=== PATIENT | female | born 1960 | race Hispanic/Latino ===

== ENCOUNTER 2021-09-13 19:19 | Inpatient (IN) | payer BC, MEDICARE ==
[~2021-09-13] VITALS: Ht 152.4 cm; Wt 72.8 kg
[2021-09-13] MEDS ORDERED: 0.9%NACL 1000ML 1,000 ML IV SCH (21:00)
[2021-09-13] MEDS ORDERED: ASPIRIN 81MG CHEW TAB PO ONE (21:00)
[2021-09-13] MEDS ORDERED: DOPAMINE 800MG/D5 250ML 250 ML IV PRN (21:30)
[2021-09-13] MEDS ORDERED: CARV25TA PO (21:31)
[2021-09-13] MEDS ORDERED: ONDA4TAB10 PO (21:31)
[2021-09-13] MEDS ORDERED: BUME2TAB5 PO (21:31)
[2021-09-13] MEDS ORDERED: ATOR20TA65 PO (21:31)
[2021-09-13] MEDS ORDERED: LACT10SO32 PO (21:31)
[2021-09-13] MEDS ORDERED: CALC667C10 PO (21:31)
[2021-09-13] MEDS ORDERED: MONT-39 PO (21:31)
[2021-09-13] MEDS ORDERED: HYDR-4030 PO (21:31)
[2021-09-13] MEDS ORDERED: VALS160T29 PO (21:31)
[2021-09-13] MEDS ORDERED: PANT20TA18 PO (21:31)
[2021-09-13] MEDS ORDERED: NIFE-39 PO (21:31)
[2021-09-13] MEDS ORDERED: SEVE800T7 PO (21:31)
[2021-09-13] MEDS ORDERED: SILV50CR31 TP (21:31)
[2021-09-13] MEDS ORDERED: RIVA2.5T PO (21:31)
[2021-09-13] MEDS ORDERED: ALPR0.5T8 PO (21:31)
[2021-09-13] MEDS ORDERED: HYDR50CA50 PO (21:31)
[2021-09-13] MEDS ORDERED: INSU100I21 SQ (21:31)
[2021-09-13 21:33] LABS: BASOPHILS % (AUTO) 0.7 % (0.0-5.0); EOSINOPHILS % (AUTO) 1.1 % (0.0-8.0); HEMATOCRIT 24.5 % (36-48); LYMPHOCYTES % (AUTO) 15.8 % (21.0-51.0); MEAN CORPUSCULAR HEMOGLOBIN 25.7 pg (27.0-33.0); MEAN CORPUSCULAR HGB CONC 31.8 g/dL (32.0-36.0); MEAN CORPUSCULAR VOLUME 80.9 fL (79-99); MONOCYTES % (AUTO) 6.6 % (3.0-13.0); NEUTROPHILS % (AUTO) 74.4 % (40.0-77.0); PLATELET COUNT (AUTO) 235 K/uL (130-400); RED BLOOD CELL COUNT(AUTO) 3.03 MIL/uL (4.00-5.50); RED CELL DISTRIBUTION WIDTH 15.3 % (11.0-15.5); WHITE BLOOD COUNT (AUTO) 9.9 K/uL (4.8-10.8)
[2021-09-13 21:43] LABS: INR 1.19 (0.85-1.15); PROTHROMBIN TIME 12.8 SEC (9.6-11.6)
[2021-09-13 21:45] LABS: PARTIAL THROMBOPLASTIN TIME 28.1 SEC (26.3-35.5)
[2021-09-13 21:53] LABS: % IRON SATURATION 15.1 % (22-44)
[2021-09-13 22:02] LABS: ALBUMIN 3.1 g/dL (3.5-5.0); BILIRUBIN,TOTAL 0.4 mg/dL (0.2-1.0); CREATININE 5.9 mg/dL (0.5-1.5); THYROID STIMULATING HORMONE 4.58 uIU/mL (0.36-3.74); TOTAL PROTEIN, SERUM 7.9 g/dL (6.0-8.3)
[2021-09-13] MEDS ORDERED: ONDANSETRON 4MG INJ ONE (23:07)
[2021-09-14] VITALS (44 sets, daily range): BP systolic 124–216; BP diastolic 24–97
[2021-09-14 03:52] LABS: BASOPHILS % (AUTO) 0.5 % (0.0-5.0); EOSINOPHILS % (AUTO) 1.4 % (0.0-8.0); LYMPHOCYTES % (AUTO) 14.1 % (21.0-51.0); MEAN CORPUSCULAR HEMOGLOBIN 25.9 pg (27.0-33.0); MEAN CORPUSCULAR HGB CONC 31.4 g/dL (32.0-36.0); MEAN CORPUSCULAR VOLUME 82.4 fL (79-99); MONOCYTES % (AUTO) 8.5 % (3.0-13.0); PLATELET COUNT (AUTO) 208 K/uL (130-400); RED BLOOD CELL COUNT(AUTO) 2.55 MIL/uL (4.00-5.50); WHITE BLOOD COUNT (AUTO) 10.5 K/uL (4.8-10.8)
[2021-09-14 04:29] LABS: CREATININE 6.2 mg/dL (0.5-1.5); MAGNESIUM 2.1 mg/dL (1.80-2.40); POTASSIUM 4.5 mmol/L (3.5-5.1)
[2021-09-14 04:32] LABS: HEMOGLOBIN A1C 8.2 % (4.0-6.0)
[2021-09-14] MEDS ORDERED: ASPIRIN 81MG CHEW TAB ONE (04:49)
[2021-09-14] MEDS ORDERED: 0.9%NACL 1000ML 1,000 ML IV ONE (04:53)
[2021-09-14] MEDS ORDERED: DOPAMINE 800MG/D5 250ML 250 ML IV ONE (05:11)
[2021-09-14] MEDS: ASPIRIN 81MG CHEW TAB PO SCH (08:22)
[2021-09-14] MEDS: PANTOPRAZOLE 40 MG/VIAL IVP SCH ×2 (09:00→19:59)
[2021-09-14] MEDS ORDERED: LACTULOSE 20 GM/30 ML UDCUP PO PRN (09:00)
[2021-09-14] MEDS ORDERED: PANTOPRAZOLE 40 MG/VIAL IVP SCH (09:00)
[2021-09-14] MEDS ORDERED: HYDROXYZINE 25 MG TABLET PO PRN (09:00)
[2021-09-14] MEDS ORDERED: DOXYCYCLINE 100MG+NS 250ML IV SCH (10:00)
[2021-09-14] MEDS: SEVELAMER HCL 800 MG TABLET PO SCH ×3 (10:06→17:00)
[2021-09-14] MEDS: MONTELUKAST SODIUM 10 MG TAB PO SCH (10:07)
[2021-09-14] MEDS: DOXYCYCLINE 100MG+NS 250ML 250 ML IV SCH ×2 (11:17→19:59)
[2021-09-14] MEDS: CEFEPIME HCL 1 GM VIAL IVP SCH (11:17)
[2021-09-14] MEDS ORDERED: AMIODARONE 150MG VIAL 150 MG in DEXTROSE 5%-WATER 100 ML IV ONE (11:30)
[2021-09-14] MEDS: INSULIN HUMULIN R 100 UNIT/ML 3ML SQ SCH ×3 (11:30→20:15)
[2021-09-14] MEDS: CALCIUM AC 667MG CAP PO SCH ×2 (12:00→17:00)
[2021-09-14 13:00] LABS: HEMATOCRIT 21.3 % (36-48); MEAN CORPUSCULAR HEMOGLOBIN 25.5 pg (27.0-33.0); MEAN CORPUSCULAR VOLUME 82.2 fL (79-99); PLATELET COUNT (AUTO) 193 K/uL (130-400); RED BLOOD CELL COUNT(AUTO) 2.59 MIL/uL (4.00-5.50); RED CELL DISTRIBUTION WIDTH 15.9 % (11.0-15.5); WHITE BLOOD COUNT (AUTO) 8.3 K/uL (4.8-10.8)
[2021-09-14] MEDS ORDERED: REGADENOSON 0.4 MG/5 ML PF SYG IVP SCH (13:30)
[2021-09-14] MEDS ORDERED: HEPARIN 5,000 UNIT VIAL IJ PRN (18:30)
[2021-09-14] MEDS: ATORVASTATIN 20 MG TABLET PO SCH (19:59)
[2021-09-14 20:55] LABS: HEPATITIS B SURFACE ANTIGEN Non-Reactive (Negative)
[2021-09-14] MEDS ORDERED: CLONIDINE HCL 0.1 MG TABLET ONE (23:17)
[2021-09-14] MEDS ORDERED: CLONIDINE HCL 0.1 MG TABLET PO ONE (23:30)
[2021-09-15] VITALS (12 sets, daily range): BP systolic 123–209; BP diastolic 46–94
[2021-09-15] MEDS ORDERED: NIFEDIPINE 10 MG CAP ONE (02:41)
[2021-09-15] MEDS ORDERED: NIFEDIPINE 10 MG CAP PO ONE (02:42)
[2021-09-15 04:21] LABS: HEMATOCRIT 25.5 % (36-48); MEAN CORPUSCULAR HEMOGLOBIN 25.2 pg (27.0-33.0); MEAN CORPUSCULAR HGB CONC 31.4 g/dL (32.0-36.0); MEAN CORPUSCULAR VOLUME 80.4 fL (79-99); RED BLOOD CELL COUNT(AUTO) 3.17 MIL/uL (4.00-5.50); RED CELL DISTRIBUTION WIDTH 16.4 % (11.0-15.5); WHITE BLOOD COUNT (AUTO) 6.9 K/uL (4.8-10.8)
[2021-09-15 04:27] LABS: CREATININE 3.9 mg/dL (0.5-1.5); POTASSIUM 3.4 mmol/L (3.5-5.1)
[2021-09-15] MEDS: INSULIN HUMULIN R 100 UNIT/ML 3ML SQ SCH ×4 (07:30→20:22)
[2021-09-15] MEDS: DOXYCYCLINE 100MG+NS 250ML 250 ML IV SCH ×2 (08:46→20:12)
[2021-09-15] MEDS: PANTOPRAZOLE 40 MG/VIAL IVP SCH ×2 (08:46→20:12)
[2021-09-15] MEDS: MONTELUKAST SODIUM 10 MG TAB PO SCH (08:51)
[2021-09-15] MEDS: CALCIUM AC 667MG CAP PO SCH ×3 (08:51→18:39)
[2021-09-15] MEDS: SEVELAMER HCL 800 MG TABLET PO SCH ×3 (08:51→18:38)
[2021-09-15] MEDS: ASPIRIN 81MG CHEW TAB PO SCH (08:52)
[2021-09-15] MEDS: CEFEPIME HCL 1 GM VIAL IVP SCH (14:21)
[2021-09-15] MEDS ORDERED: NIFEDIPINE ER 30 MG TAB PO ONE (14:24)
[2021-09-15] MEDS ORDERED: NIFEDIPINE ER 30 MG TAB PO SCH (15:30)
[2021-09-15] MEDS ORDERED: POTASSIUM CHLORIDE 10MEQ/100ML 10 MEQ/100 ML ML IV SCH (20:00)
[2021-09-15] MEDS: ATORVASTATIN 20 MG TABLET PO SCH (20:12)
[2021-09-15] MEDS: NIFEDIPINE ER 30 MG TAB PO SCH (20:12)
[2021-09-16] VITALS (23 sets, daily range): BP systolic 138–216; BP diastolic 69–113
[2021-09-16] MEDS: INSULIN HUMULIN R 100 UNIT/ML 3ML SQ SCH ×4 (06:52→21:00)
[2021-09-16] MEDS: MONTELUKAST SODIUM 10 MG TAB PO SCH (08:14)
[2021-09-16] MEDS: CALCIUM AC 667MG CAP PO SCH ×3 (08:14→17:00)
[2021-09-16] MEDS: SEVELAMER HCL 800 MG TABLET PO SCH ×3 (08:14→17:00)
[2021-09-16] MEDS: PANTOPRAZOLE 40 MG/VIAL IVP SCH ×2 (08:14→22:18)
[2021-09-16] MEDS: ASPIRIN 81MG CHEW TAB PO SCH (08:14)
[2021-09-16] MEDS: NIFEDIPINE ER 30 MG TAB PO SCH ×2 (09:00→22:18)
[2021-09-16] MEDS: DOXYCYCLINE 100MG+NS 250ML 250 ML IV SCH ×2 (09:00→22:18)
[2021-09-16 09:46] LABS: HEMATOCRIT 26.9 % (36-48); MEAN CORPUSCULAR HEMOGLOBIN 25.9 pg (27.0-33.0); MEAN CORPUSCULAR HGB CONC 31.6 g/dL (32.0-36.0); RED BLOOD CELL COUNT(AUTO) 3.28 MIL/uL (4.00-5.50); WHITE BLOOD COUNT (AUTO) 6.9 K/uL (4.8-10.8)
[2021-09-16 09:57] LABS: CREATININE 5.7 mg/dL (0.5-1.5); POTASSIUM 4.2 mmol/L (3.5-5.1)
[2021-09-16] MEDS: CEFEPIME HCL 1 GM VIAL IVP SCH (10:00)
[2021-09-16] MEDS ORDERED: ONDANSETRON 4MG INJ ONE (22:13)
[2021-09-16] MEDS: ATORVASTATIN 20 MG TABLET PO SCH (22:18)
[2021-09-16] MEDS ORDERED: ONDANSETRON 4MG INJ IVP PRN (22:30)
[2021-09-17] VITALS (16 sets, daily range): BP systolic 145–168; BP diastolic 58–85
[2021-09-17 04:16] LABS: HEMATOCRIT 27.5 % (36-48); MEAN CORPUSCULAR HEMOGLOBIN 25.1 pg (27.0-33.0); MEAN CORPUSCULAR HGB CONC 30.9 g/dL (32.0-36.0); MEAN CORPUSCULAR VOLUME 81.1 fL (79-99); RED BLOOD CELL COUNT(AUTO) 3.39 MIL/uL (4.00-5.50); RED CELL DISTRIBUTION WIDTH 15.5 % (11.0-15.5)
[2021-09-17 04:26] LABS: CREATININE 4.8 mg/dL (0.5-1.5)
[2021-09-17] MEDS: INSULIN HUMULIN R 100 UNIT/ML 3ML SQ SCH ×3 (06:29→16:30)
[2021-09-17] MEDS: SEVELAMER HCL 800 MG TABLET PO SCH ×3 (08:00→16:57)
[2021-09-17] MEDS: CALCIUM AC 667MG CAP PO SCH ×3 (08:00→16:57)
[2021-09-17] MEDS: DOXYCYCLINE 100MG+NS 250ML 250 ML IV SCH (08:27)
[2021-09-17] MEDS: NIFEDIPINE ER 30 MG TAB PO SCH (09:00)
[2021-09-17] MEDS: ASPIRIN 81MG CHEW TAB PO SCH (09:00)
[2021-09-17] MEDS: MONTELUKAST SODIUM 10 MG TAB PO SCH (09:00)
[2021-09-17] MEDS ORDERED: HYDRALAZINE 20MG/ML VIAL IV PRN (09:30)
[2021-09-17] MEDS ORDERED: [UNRECOGNIZED DRUG - REMARK] MISC SCH (09:30)
[2021-09-17] MEDS: PANTOPRAZOLE 40 MG/VIAL IVP SCH (10:46)
[2021-09-17] MEDS: CEFEPIME HCL 1 GM VIAL IVP SCH (10:46)
[2021-09-17] MEDS ORDERED: PROPOFOL 10 MG/ML 20ML VIAL IV ONE ×2 (13:58)
[2021-09-17] MEDS ORDERED: PANTOPRAZOLE 40 MG TAB DR PO SCH (21:00)
== END 2021-09-17 18:45 | disposition home or self-care (01) | DRG 291 ==
LOC: 2BH 19:19 → 4CH 09-15 03:31
PROVIDERS: ADMIT Internal Medicine; ATTEND Internal Medicine
PROC: 30233N1 Transfusion of Nonautologous Red Blood Cells into Peripheral Vein, Percutaneous Approach (ICD-10-PCS; 2021-09-14)
PROC: 5A1D70Z Performance of Urinary Filtration, Intermittent, Less than 6 Hours Per Day (ICD-10-PCS; 2021-09-14)
PROC: 5A1D70Z Performance of Urinary Filtration, Intermittent, Less than 6 Hours Per Day (ICD-10-PCS; 2021-09-16)
PROC: 0DB68ZX Excision of Stomach, Via Natural or Artificial Opening Endoscopic, Diagnostic (ICD-10-PCS; principal; 2021-09-17)
PROC: 0DB78ZX Excision of Stomach, Pylorus, Via Natural or Artificial Opening Endoscopic, Diagnostic (ICD-10-PCS; 2021-09-17)
DX: I13.2 Hypertensive heart and chronic kidney disease with heart failure and with stage 5 chronic kidney disease, or end stage renal disease (principal); N18.6 End stage renal disease; I50.33 Acute on chronic diastolic (congestive) heart failure; J96.01 Acute respiratory failure with hypoxia; J81.1 Chronic pulmonary edema; D62 Acute posthemorrhagic anemia; E87.70 Fluid overload, unspecified; D63.8 Anemia in other chronic diseases classified elsewhere; E78.5 Hyperlipidemia, unspecified; E11.59 Type 2 diabetes mellitus with other circulatory complications; I49.5 Sick sinus syndrome; D50.9 Iron deficiency anemia, unspecified; E11.22 Type 2 diabetes mellitus with diabetic chronic kidney disease; E11.319 Type 2 diabetes mellitus with unspecified diabetic retinopathy without macular edema; F41.9 Anxiety disorder, unspecified; G47.00 Insomnia, unspecified; K31.89 Other diseases of stomach and duodenum; G52.2 Disorders of vagus nerve; H54.8 Legal blindness, as defined in USA; Z20.822 Contact with and (suspected) exposure to COVID-19; Z79.82 Long term (current) use of aspirin; Z99.2 Dependence on renal dialysis; Z90.49 Acquired absence of other specified parts of digestive tract; Z87.891 Personal history of nicotine dependence; Z83.3 Family history of diabetes mellitus; Z82.49 Family history of ischemic heart disease and other diseases of the circulatory system
CPT/HCPCS: 36415; 43239; 71045; 78452; 80048; 80053; 82270; 82607; 82728; 82746; 82948; 83036; 83540; 83550; 83605; 83735; 83880; 84100; 84145; 84439; 84443; 84481; 84484; 85025; 85027; 85610; 85651; 85730; 86140; 86704; 86706; 86850; 86900; 86901; 86923; 87040; 87340; 87635; 90935; 92610; 93005; 93017; 93306; 93356; 96374; A4606; A9500; C9113; G0378; J0692; J1265; J1644; J1815; J2405; J2704; J2785; J3490; J7030; P9016